=== PATIENT | female | born 1995 | race African-American/Black ===

== ENCOUNTER 2022-05-05 22:20 | Emergency (ER) | payer OTHER ==
[2022-05-05 22:28] VITALS: BP 123/85; PULSE 73; RESP 16; TEMP 98.6; BMI 31.0
[2022-05-05] MEDS ORDERED: ACETAMINOPHEN 325 MG TABLET (FP) PO ONE (22:39)
[2022-05-05] MEDS ORDERED: ACETAMINOPHEN 325 MG TABLET (FP) ONE (22:41)
== END 2022-05-05 23:46 | disposition home or self-care (01) ==
LOC: FER 22:20
DX: R51.9 Headache, unspecified (principal); Z77.22 Contact with and (suspected) exposure to environmental tobacco smoke (acute) (chronic)
CPT/HCPCS: 93005; 99283-25